=== PATIENT | female | born 1975 | race Caucasian/White ===

== ENCOUNTER 2017-01-01 21:30 | Emergency (ER) | payer BC, OTHER ==
[~2017-01-01] VITALS: Ht 160 cm; Wt 72.6 kg
[~2017-01-01 21:30] MED LIST: ACHD5005 PO; CLIN300C3 PO; CYCL10TA9 PO; FLUC200T45 PO; METH4TAB PO; MOME15CR TP; NAPR-243 PO; OXYC-199 PO; PENI500T PO; TORADOL 10 MG PO; TRAM50TA2 PO
--- OUTSIDE RECORDS SUMMARY | 2017-01-01 21:37 | XMS REPORT | Continuity of Care Document ---
Author Author [facility] Organization [facility] Address Unknown Phone Unavailable Allergies Active Description Code Type Severity Reaction Onset Reported/Identified Relationship to Patient Clinical Status Yes No Known Drug Allergies [id number] Drug Allergy Unknown N/ A 10/07/2013 Medications Problems Date Dx Coded Attending Type Code Diagnosis Diagnosed By 02/17/2010 Ot 805.3 02/17/2010 Ot 813.42 02/17/2010 Ot 845.00 02/17/2010 Ot 846.0 02/17/2010 Ot 847.0 02/17/2010 Ot 920 02/17/2010 Ot 959.01 02/17/2010 Ot E000.8 02/17/2010 Ot E812.0 10/13/2013 NILE TEJADA DO Ot 543.0 10/16/2013 AMOS FAVIOLA BURGOS Ot 692.9 11/04/2013 AMOS FAVIOLA Buckner Ot 521.00 11/04/2013 AMOS FAVIOLA BURGOS Ot 522.5 11/04/2013 AMOS FAVIOLA BURGOS Ot 525.9 07/23/2014 LUKE GRIFFITHS DO Ot 789.09 02/05/2015 LUKE GRIFFITHS DO Ot 789.09 02/05/2015 NILE TEJADA DO Ot 789.03 02/05/2015 NILE TEJADA DO Ot V72.63 02/05/2015 NILE TEJADA DO Ot V74.8 02/15/2015 LUKE GRIFFITHS DO Ot 789.09 02/15/2015 NILE TEJADA DO Ot 789.03 02/15/2015 NILE TEJADA DO Ot V72.63 02/15/2015 NILE TEJADA DO Ot V74.8 Procedures Results Encounters ACCT No. Visit Date/Time Discharge Status Pt. Type Provider Facility Loc./Unit Complaint [id number] 11/04/2013 17:22:00 2013 19:32:00 DIS Emergency AMOS FAVIOLA BURGOS [facility] ER [id number] 10/16/2013 03:38:00 2013 04:09:00 DIS Emergency FAVIOLA TRINIDAD DO [facility] ER [id number] 10/13/2013 10:55:00 2013 17:55:00 DIS Outpatient TERRELL NILE [facility] [id number] 10/07/2013 09:40:00 2013 23:59:59 CLS Outpatient TERRELL DORONAKTRINI [facility] PREOP [id number] 08/13/2013 12:05:00 2013 23:59:59 CLS Outpatient AYE LUKE Ayaan [facility] RAD [id number] 02/17/2010 19:04:00 Document Registration
[2017-01-01] MEDS ORDERED: OXYC-197 PO (21:52)
[2017-01-01] MEDS ORDERED: KETOROLAC 60 MG/2 ML VIAL IM STA (22:06)
[2017-01-01] MEDS ORDERED: MELO15TA14 PO (22:11)
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
[2017-01-01 22:41] VITALS: BP 120/74
--- NOTE | 2017-01-02 06:27 | Diagnostic Imaging Report ---
INDICATION: Injury. Pain. Recent fusion. COMPARISON: 04/27/2010 FINDINGS: 3 views of the left ankle are obtained. There is generalized osteopenia. There are new postoperative changes of subtalar fusion. No unusual lucency reaction is seen about the fusion hardware. There is still some lucency across the subtalar joint. No acute fracture or malalignment is seen. Ankle mortise appears preserved. There is soft tissue swelling medially and laterally. IMPRESSION: Generalized osteopenia, postoperative changes of interval subtalar fusion. No evidence of an acute fracture or complicating process. There is moderate soft tissue swelling. Dictated by: Dictated on workstation # [id number]
== END 2017-01-01 22:41 | disposition home or self-care (01) ==
LOC: EDUNIT# 21:30 → ER 21:33
DX: S93.402A Sprain of unspecified ligament of left ankle, initial encounter (principal); M17.12 Unilateral primary osteoarthritis, left knee; F17.210 Nicotine dependence, cigarettes, uncomplicated; Z90.710 Acquired absence of both cervix and uterus; Z98.1 Arthrodesis status; X50.0XXA Overexertion from strenuous movement or load, initial encounter
CPT/HCPCS: 73610; 96372; 99284

== ENCOUNTER 2017-11-07 12:32 | Emergency (ER) | payer SELFPAY ==
[~2017-11-07] VITALS: Ht 160 cm; Wt 72.6 kg
[~2017-11-07 12:32] MED LIST changes: +MELO15TA14 PO; +OXYC1TAB87 PO
[2017-11-07] MEDS ORDERED: NS IV 1000 ML 1,000 ML IV ONE (13:29)
[2017-11-07] MEDS ORDERED: KETOROLAC 30 MG/ML VIAL IVP STA (13:29)
--- NOTE | 2017-11-07 13:45 | ED Abdominal Pain ---
General Chief Complaint: Abdominal/GI Problems Stated Complaint: ABD PAIN Nursing Triage Note: PT CO OF ABD R LOWER ABD PAIN. X1 WEEK, PT DENIES N/V/D, PT HAS WEAKNESS, L EAR ACHE AND SORETHROAT Sepsis Screen: No Definite Risk Source of Information: Patient Exam Limitations: No Limitations History of Present Illness Date Seen by Provider: Nov 07, 2017 Time Seen by Provider: 13:10 Initial Comments Here with report of increasing right lower quadrant pain over the last week. Has had a little bit of nausea but no vomiting or diarrhea. Denies dysuria. Dates pain is worse with urination. Also complains of upper respiratory symptoms including left ear fullness and ache as well as sore throat. That has been going on for a couple days and seems to be worsening as well. Hasn't really taken anything for the pain. Also has concerns about depression. She has been following with her doctor in [place] and was previously on antidepressants but hasn't been on them in a while. She has increased stress related to recent divorce and move. Does have history of right lower quadrant abdominal pain and adhesions after appendectomy. Has had complete hysterectomy and oophorectomy. A normal bowel movement yesterday. Denies blood in her stool or urine Timing/Duration: 1 Week Severity/Quality: Moderate, Aching Location: RLQ Radiation: Back Activities at Onset: None Modifying Factors: Worsens With Movement, Worsens With Urinating Associated Symptoms: No Back Pain, No Chest Pain, No Fever/Chills; Fatigue, Nausea/Vomiting; No Swelling/Mass in Abdomen, No Weakness Allergies and Home Medications Allergies Coded Allergies: No Known Drug Allergies (Unverified , 10/07/13) Home Medications No Active Prescriptions or Reported Meds Patient Home Medication List Home Medication List Reviewed: Yes Review of Systems Review of Systems Constitutional: see HPI; No fever; malaise EENTM: Nose Congestion, Throat Pain Respiratory: Denies Cough, Denies Shortness of Air Cardiovascular: Denies Chest Pain, Denies Edema Gastrointestinal: Abdominal Pain; Denies Constipated; Nausea; Denies Vomiting Genitourinary: See HPI, Pain Musculoskeletal: back pain; No muscle pain Skin: no symptoms reported Psychiatric/Neurological: Anxiety, Depressed Endocrine: No Symptoms Reported All Other Systems Reviewed Negative Unless Noted: Yes Past Hmhsudj-Ruhpyh-Nxukyc Hx Past Med/Social Hx: Reviewed Nursing Past Med/Soc Hx Patient Social History Alcohol Use: Denies Use Recreational Drug Use: No Type Used: Cigarettes 2nd Hand Smoke Exposure: Yes Recent Foreign Travel: No Contact w/Someone Who Travel: No Recent Infectious Disease Expo: No Recent Hopitalizations: No Physical Abuse: No Sexual Abuse: No Immunizations Up To Date Tetanus Booster (TDap): Less than 5yrs PED Vaccines UTD: Yes Seasonal Allergies Seasonal Allergies: Yes Past Medical History Surgeries: Yes (BREAST LUMPECTOMY, BACK SX RODS PLACED, LEFT ANKLE SX, DXLS) Breast, Hysterectomy, Orthopedic Respiratory: No Cardiac: No 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 oz. 72.006044fh; 29.23 BMI Method:Stated General Appearance: WD/WN, no apparent distress HEENT: PERRL/EOMI, pharyngeal erythema; No tonsillar exudate; other (moderate bilateral nasal congestion with erythema and clear rhinorrhea. Question mild left TM bulging but clear fluid. Otherwise normal TM exams bilateral) Neck: full range of motion, supple Respiratory: lungs clear, normal breath sounds Cardiovascular: regular rate, rhythm, no murmur Gastrointestinal: soft; No guarding, No rebound; tenderness Extremities: non-tender, normal inspection Back: normal inspection, no CVA tenderness, no vertebral tenderness Neurologic/Psychiatric: alert, oriented x 3 Skin: normal color, warm/dry Progress/Results/Core Measures Results/Orders Lab Results Laboratory Tests Test 11/07/17 13:50 11/07/17 13:53 Range/Units White Blood Count 7.0 4.3-11.0 10^3/uL Red Blood Count 4.41 4.35-5.85 10^6/uL Hemoglobin 13.5 11.5-16.0 G/DL Hematocrit 40 35-52 % Mean Corpuscular Volume 90 80-99 FL Mean Corpuscular Hemoglobin 31 25-34 PG Mean Corpuscular Hemoglobin Concent 34 32-36 G/DL Red Cell Distribution Width 12.7 10.0-14.5 % Platelet Count 230 130-400 10^3/uL Mean Platelet Volume 11.0 H 7.4-10.4 FL Neutrophils (%) (Auto) 53 42-75 % Lymphocytes (%) (Auto) 35 12-44 % Monocytes (%) (Auto) 9 0-12 % Eosinophils (%) (Auto) 3 0-10 % Basophils (%) (Auto) 1 0-10 % Neutrophils # (Auto) 3.7 1.8-7.8 X 10^3 Lymphocytes # (Auto) 2.5 1.0-4.0 X 10^3 Monocytes # (Auto) 0.6 0.0-1.0 X 10^3 Eosinophils # (Auto) 0.2 0.0-0.3 10^3/uL Basophils # (Auto) 0.0 0.0-0.1 10^3/uL Sodium Level 139 135-145 MMOL/L Potassium Level 3.8 3.6-5.0 MMOL/L Chloride Level 108 H 98-107 MMOL/L Carbon Dioxide Level 25 21-32 MMOL/L Anion Gap 6 5-14 MMOL/L Blood Urea Nitrogen 8 7-18 MG/DL Creatinine 0.85 0.60-1.30 MG/DL Estimat Glomerular Filtration Rate > 60 BUN/Creatinine Ratio 9 Glucose Level 85 70-105 MG/DL Calcium Level 9.7 8.5-10.1 MG/DL Corrected Calcium 9.4 8.5-10.1 MG/DL Total Bilirubin 0.4 0.1-1.0 MG/DL Aspartate Amino Transf (AST/SGOT) 13 5-34 U/L Alanine Aminotransferase (ALT/SGPT) 14 0-55 U/L Alkaline Phosphatase 116 40-136 U/L Total Protein 7.3 6.4-8.2 GM/DL Albumin 4.4 3.2-4.5 GM/DL Urine Color YELLOW Urine Clarity CLEAR Urine pH 6 5-9 Urine Specific [place] 1.005 L 1.016-1.022 Urine Protein NEGATIVE NEGATIVE Urine Glucose (UA) NEGATIVE NEGATIVE Urine Ketones NEGATIVE NEGATIVE Urine Nitrite NEGATIVE NEGATIVE Urine Bilirubin NEGATIVE NEGATIVE Urine Urobilinogen NORMAL NORMAL MG/DL Urine Leukocyte Esterase NEGATIVE NEGATIVE Urine RBC (Auto) NEGATIVE NEGATIVE Urine RBC NONE /HPF Urine WBC NONE /HPF Urine Squamous Epithelial Cells RARE /HPF Urine Crystals NONE /LPF Urine Bacteria NEGATIVE /HPF Urine Casts NONE /LPF Urine Mucus NEGATIVE /LPF Urine Culture Indicated NO My Orders Orders - JANNA OJEDA MD Cbc With Automated Diff (11/07/17 13:29) Comprehensive Metabolic Panel (11/07/17 13:29) Ua Culture If Indicated (11/07/17 13:29) Saline Lock/Iv-Start (11/07/17 13:29) Ns Iv 1000 Ml (Sodium Chloride 0.9%) (11/07/17 13:29) Ketorolac Injection (Toradol Injection) (11/07/17 13:29) Ct Abdomen/Pelvis W (11/07/17 14:28) Fentanyl Injection (Sublimaze Injection (11/07/17 15:30) Medications Given in ED Current Medications Medications Dose Ordered Sig/Sreekanth Route Start Time Stop Time Status Last Admin Dose Admin Sodium Chloride 1,000 ml @ 0 mls/hr Q0M ONCE IV 11/07/17 13:29 11/07/17 13:31 DC 11/07/17 14:13 1,000 MLS/HR Vital Signs/I&O 11/07/17 13:00 Temp 99.1 Pulse 74 Resp 16 B/P (MAP) 117/68 (84) Pulse Ox 98 Blood Pressure Mean: 84 Progress Progress Note : Progress Note Seen and evaluated. IV, labs and UA ordered. Normal saline 1 L bolus. Toradol 30 mg IV. Monitor patient. 1445: CT abdomen pelvis with contrast ordered. Patient doing a little better after pain control but still has pain. Monitor patient. 1600: CT complete. Patient did receive fentanyl 30 g IV. This did help. No acute findings on CT scan. I did discuss the case with Dr. Pierre. He did be happy to see her in the office. He did review the CT scan. You would try to avoid any further surgeries but will see her and follow her as needed. I did talk at length with the patient about follow-up for her depression. Gave her information [facility]. She is also looking for a local physician. We talked about different options and we will give name of Dr. Mcgrath to her. Discharged home with return precautions. Patient verbalize understanding instructions and agreement with plan. Diagnostic Imaging Diagonstic Imaging: CT Plain Films/CT/US/NM/MRI: abdomen, pelvis Comments V[facility] [place], [place] NAME: BERTO CARRINGTON [facility] REC#: [id number] PT STATUS: REG ER : 1975 PHYSICIAN: JANNA OJEDA MD ADMIT DATE: 11/07/17/ER Draft Date of Exam:11/07/17 CT ABDOMEN/PELVIS W PROCEDURE: CT abdomen and pelvis with contrast. TECHNIQUE: Multiple contiguous axial images were obtained through the abdomen and pelvis after administration of intravenous contrast. INDICATION: Right lower quadrant pain of one week's duration, recently worsening in severity. Has had previous hysterectomy and appendectomy. COMPARISON: The exam compared 11/13/2013. FINDINGS: There is no hydronephrosis. No opaque kidney stone. The liver, spleen, adrenals, and pancreas are unremarkable. The gallbladder is unremarkable. No bile duct dilatation. There is no pericolonic or perienteric edema. No small or large bowel wall thickening. There is no focal inflammatory process. Previous surgical changes of appendectomy present without evidence for stump appendicitis. There is no mesenteric or retroperitoneal lymphadenopathy. There are postsurgical changes to the thoracolumbar spine with no acute osseous pathology. The lung bases are clear. Colonic fecal load is not pathologic. There is no evidence for ileus. No focal inflammation. No ascites or fluid collection. IMPRESSION: Postsurgical changes but no obstructive phenomena, inflammatory process, or acute abnormalities identified. No findings to explain the presenting complaints. Dictated on workstation # [id number] Dict: 11/07/17 1525 Trans: 11/07/17 1538 [id number] Interpreted by: KIKE DEGROOT Electronically signed by: Departure Impression Primary Impression: Right lower quadrant abdominal pain Additional Impressions: Upper respiratory infection Qualified Codes: J06.9 - Acute upper respiratory infection, unspecified Depression Qualified Codes: F32.9 - Major depressive disorder, single episode, unspecified Disposition: 01 HOME, SELF-CARE Condition: Improved Departure-Patient Inst. Decision time for Depature: 16:05 Referrals: KISHOR PIERRE DO NO,LOCAL PHYSICIAN (PCP) Primary Care Physician BRIANNA MCGRATH MD Patient Instructions: Acute Abdomen (Belly Pain), Adult (DC), Depression, Adult (DC), Viral Upper Respiratory Infection, Adult (DC) Add. Discharge Instructions: All discharge instructions reviewed with patient and/or family. Voiced understanding. Should take medications as directed. You may take ibuprofen 600 mg every 8 hours as needed for pain. You may take Tylenol/acetaminophen 1000 mg every 8 hours as needed for pain. For your ear pain and sore throat, you may try Afrin nasal spray or the generic, 12 hour relief, 2 sprays to each nostril twice daily for 3 days only and then stop. Do not use more than 3 days. You should follow-up with the doctor listed or other choosing for your depression. You should seek further counseling with [facility] for similar. Call for appointment. You may follow-up with Dr. Pierre for your abdominal pain. Call his office for appointment. Drink plenty of fluids. Return for worse pain, fever, vomiting, weakness or other concerns as needed. Scripts No Active Prescriptions or Reported Meds JANNA OJEDA MD Nov 07, 2017 13:45
[2017-11-07 14:02] LABS: BASOPHILS % (AUTO) 1 % (0-10); EOSINOPHILS # (AUTO) 0.2 10^3/uL (0.0-0.3); EOSINOPHILS % (AUTO) 3 % (0-10); HEMATOCRIT 40 % (35-52); HEMOGLOBIN 13.5 G/DL (11.5-16.0); LYMPHOCYTES # (AUTO) 2.5 X 10^3 (1.0-4.0); LYMPHOCYTES % (AUTO) 35 % (12-44); MEAN CORPUSCULAR HEMOGLOBIN 31 PG (25-34); MEAN CORPUSCULAR HGB CONC 34 G/DL (32-36); MEAN CORPUSCULAR VOLUME 90 FL (80-99); MONOCYTES # (AUTO) 0.6 X 10^3 (0.0-1.0); MONOCYTES % (AUTO) 9 % (0-12); NEUTROPHILS # (AUTO) 3.7 X 10^3 (1.8-7.8); NEUTROPHILS % (AUTO) 53 % (42-75); PLATELET COUNT 230 10^3/uL (130-400); RED BLOOD COUNT 4.41 10^6/uL (4.35-5.85); RED CELL DISTRIBUTION WIDTH 12.7 % (10.0-14.5)
[2017-11-07 14:02] LABS: BILIRUBIN,URINE NEGATIVE (NEGATIVE); CLARITY,URINE CLEAR; COLOR,URINE YELLOW; GLUCOSE, URINE (UA) NEGATIVE (NEGATIVE); KETONES,URINE NEGATIVE (NEGATIVE); LEUKOCYTE ESTERASE ,URINE NEGATIVE (NEGATIVE); NITRITE,URINE NEGATIVE (NEGATIVE); PH,URINE 6 (5-9); PROTEIN,URINE NEGATIVE (NEGATIVE); UROBILINOGEN,URINE NORMAL (NORMAL)
[2017-11-07 14:12] LABS: BACTERIA,URINE NEGATIVE /HPF; SQUAMOUS EPITHELIAL CELL,UR RARE /HPF
[2017-11-07 14:22] LABS: ALANINE AMINOTRANSFERASE 14 U/L (0-55); ALBUMIN 4.4 GM/DL (3.2-4.5); ALKALINE PHOSPHATASE 116 U/L (40-136); BILIRUBIN,TOTAL 0.4 MG/DL (0.1-1.0); BUN/CREATININE RATIO 9; CALCIUM 9.7 MG/DL (8.5-10.1); CARBON DIOXIDE 25 MMOL/L (21-32); CHLORIDE 108 MMOL/L (98-107); CREATININE SERUM 0.85 MG/DL (0.60-1.30); GFR ESTIMATED > 60; GLUCOSE 85 MG/DL (70-105); POTASSIUM 3.8 MMOL/L (3.6-5.0); SODIUM 139 MMOL/L (135-145); TOTAL PROTEIN 7.3 GM/DL (6.4-8.2)
[2017-11-07] MEDS ORDERED: fentaNYL INJECTION 100 MCG/2 ML AMP IVP STA (15:30)
--- NOTE | 2017-11-07 15:38 | Diagnostic Imaging Report ---
PROCEDURE: CT abdomen and pelvis with contrast. TECHNIQUE: Multiple contiguous axial images were obtained through the abdomen and pelvis after administration of intravenous contrast. INDICATION: Right lower quadrant pain of one week's duration, recently worsening in severity. Has had previous hysterectomy and appendectomy. COMPARISON: The exam compared 11/13/2013. FINDINGS: There is no hydronephrosis. No opaque kidney stone. The liver, spleen, adrenals, and pancreas are unremarkable. The gallbladder is unremarkable. No bile duct dilatation. There is no pericolonic or perienteric edema. No small or large bowel wall thickening. There is no focal inflammatory process. Previous surgical changes of appendectomy present without evidence for stump appendicitis. There is no mesenteric or retroperitoneal lymphadenopathy. There are postsurgical changes to the thoracolumbar spine with no acute osseous pathology. The lung bases are clear. Colonic fecal load is not pathologic. There is no evidence for ileus. No focal inflammation. No ascites or fluid collection. IMPRESSION: Postsurgical changes but no obstructive phenomena, inflammatory process, or acute abnormalities identified. No findings to explain the presenting complaints. Dictated by: Dictated on workstation # [id number]
[2017-11-07 16:16] VITALS: BP 117/68
== END 2017-11-07 18:13 | disposition home or self-care (01) ==
LOC: EDUNIT# 12:32 → ER 12:34
DX: R10.31 Right lower quadrant pain (principal); J06.9 Acute upper respiratory infection, unspecified; F32.9 Major depressive disorder, single episode, unspecified; Z90.89 Acquired absence of other organs; Z90.710 Acquired absence of both cervix and uterus; Z77.22 Contact with and (suspected) exposure to environmental tobacco smoke (acute) (chronic)
CPT/HCPCS: 36415; 74177; 80053; 81000; 85025; 96361; 96374; 96375

== ENCOUNTER → 2017-12-17 | Emergency (ER) | payer SELFPAY ==
[~2017-12-17] VITALS: Ht 160 cm; Wt 72.6 kg
[~2017-12-17] MED LIST changes: +NS IV 1000 ML 1,000 ML IV ONE; +PRD20T PO; +RT-ALBUTEROL/IPRATROPIUM 3 ML (DUONEB) VIAL INH ONE; +RX-ALBUTEROL INHALER (PROAIR) 8 GM IH STA; +predniSONE 20 MG TAB PO ONE
[2017-12-17 00:55] LABS: BASOPHILS % (AUTO) 0 % (0-10); EOSINOPHILS # (AUTO) 0.3 10^3/uL (0.0-0.3); EOSINOPHILS % (AUTO) 3 % (0-10); HEMATOCRIT 41 % (35-52); HEMOGLOBIN 14.1 G/DL (11.5-16.0); LYMPHOCYTES # (AUTO) 3.8 X 10^3 (1.0-4.0); LYMPHOCYTES % (AUTO) 40 % (12-44); MEAN CORPUSCULAR HEMOGLOBIN 31 PG (25-34); MEAN CORPUSCULAR HGB CONC 34 G/DL (32-36); MEAN CORPUSCULAR VOLUME 91 FL (80-99); MEAN PLATELET VOLUME 10.9 FL (7.4-10.4); MONOCYTES # (AUTO) 0.6 X 10^3 (0.0-1.0); MONOCYTES % (AUTO) 6 % (0-12); NEUTROPHILS # (AUTO) 4.7 X 10^3 (1.8-7.8); NEUTROPHILS % (AUTO) 50 % (42-75); PLATELET COUNT 271 10^3/uL (130-400); RED BLOOD COUNT 4.53 10^6/uL (4.35-5.85); WHITE BLOOD COUNT 9.5 10^3/uL (4.3-11.0)
--- NOTE | 2017-12-17 01:00 | ED Respiratory ---
General Stated Complaint: SOB Source: patient Exam Limitations: no limitations History of Present Illness Date Seen by Provider: Dec 17, 2017 Time Seen by Provider: 00:32 Initial Comments Here with report of acute onset shortness of breath at about 1130 p.m. She had just returned from a trip to [place] and spent [address] with very little break. Never had anything like this before. Does report some central chest pressure with shortness of breath. She reports that she was able to cough and get a little relief but still feels the shortness of breath now. Timing/Duration: this evening, constant Severity: moderate Prior Episodes/Possible Cause: no prior episodes Modifying Factors: Improves With Coughing, Improves With Rest Associated Symptoms: cough; No fever/chills; nasal drainage, shortness of breath; No sore throat, No wheezing Allergies and Home Medications Allergies Coded Allergies: No Known Drug Allergies (Unverified , 10/07/13) Home Medications Prednisone 20 Mg Tab, 40 MG PO DAILY Prescribed by: JANNA OJEDA on 12/17/17 0223 Patient Home Medication List Home Medication List Reviewed: Yes Review of Systems Review of Systems Constitutional: see HPI; No chills, No fever EENTM: see HPI Respiratory: see HPI, cough, dyspnea on exertion Cardiovascular: see HPI; No edema, No palpitations Gastrointestinal: No abdominal pain, No nausea, No vomiting Genitourinary: no symptoms reported Musculoskeletal: no symptoms reported Skin: no symptoms reported Psychiatric/Neurological: No Symptoms Reported All Other Systems Reviewed Negative Unless Noted: Yes Past Ibsamhn-Iqbxgu-Tdylfe Hx Past Med/Social Hx: Reviewed Nursing Past Med/Soc Hx Patient Social History Smoking Status: Current Everyday Smoker Type Used: Cigarettes 2nd Hand Smoke Exposure: Yes Recent Foreign Travel: No Contact w/Someone Who Travel: No Recent Hopitalizations: No Immunizations Up To Date Tetanus Booster (TDap): Less than 5yrs PED Vaccines UTD: Yes Seasonal Allergies Seasonal Allergies: Yes Past Medical History Surgeries: Yes (BREAST LUMPECTOMY, BACK SX RODS PLACED, LEFT ANKLE SX, DXLS) Breast, Hysterectomy, Orthopedic Respiratory: No Cardiac: No Neurological: No [employer] History: Hysterectomy Genitourinary: No Gastrointestinal: No Musculoskeletal: Yes (CHRONIC LEFT ANKLE PAIN--S/P SURGERY) Back Injury Endocrine: No HEENT: No Cancer: No Psychosocial: No Integumentary: No Blood Disorders: No Family Medical History Reviewed Nursing Family Hx Physical Exam Vital Signs - First Documented 12/17/17 12/17/17 00:30 01:42 Temp 98.0 Pulse 79 Resp 16 B/P (MAP) 134/86 (102) Pulse Ox 98 O2 Delivery Room Air Capillary Refill : Height: 5'3.00" Weight: 160lbs. oz. [id number]; 29.23 BMI Method:Stated General Appearance: WD/WN, no apparent distress HEENT: PERRL/EOMI, pharynx normal Neck: full range of motion, supple Respiratory: lungs clear, normal breath sounds Cardiovascular: regular rate, rhythm, no murmur Gastrointestinal: non tender, soft Extremities: non-tender, normal inspection, no pedal edema, no calf tenderness Neurologic/Psychiatric: alert, oriented x 3 Skin: normal color, warm/dry Progress/Results/Core Measures Suspected Sepsis SIRS Temperature: Pulse: Respiratory Rate: Laboratory Tests 12/17/17 00:40: White Blood Count 9.5 Blood Pressure / Mean: Laboratory Tests 12/17/17 00:40: Creatinine 1.00, Platelet Count 271, Total Bilirubin 0.3 Results/Orders Lab Results Laboratory Tests Test 12/17/17 00:40 Range/Units White Blood Count 9.5 4.3-11.0 10^3/uL Red Blood Count 4.53 4.35-5.85 10^6/uL Hemoglobin 14.1 11.5-16.0 G/DL Hematocrit 41 35-52 % Mean Corpuscular Volume 91 80-99 FL Mean Corpuscular Hemoglobin 31 25-34 PG Mean Corpuscular Hemoglobin Concent 34 32-36 G/DL Red Cell Distribution Width 13.0 10.0-14.5 % Platelet Count 271 130-400 10^3/uL Mean Platelet Volume 10.9 H 7.4-10.4 FL Neutrophils (%) (Auto) 50 42-75 % Lymphocytes (%) (Auto) 40 12-44 % Monocytes (%) (Auto) 6 0-12 % Eosinophils (%) (Auto) 3 0-10 % Basophils (%) (Auto) 0 0-10 % Neutrophils # (Auto) 4.7 1.8-7.8 X 10^3 Lymphocytes # (Auto) 3.8 1.0-4.0 X 10^3 Monocytes # (Auto) 0.6 0.0-1.0 X 10^3 Eosinophils # (Auto) 0.3 0.0-0.3 10^3/uL Basophils # (Auto) 0.0 0.0-0.1 10^3/uL D-Dimer 0.28 0.00-0.49 UG/ML Sodium Level 141 135-145 MMOL/L Potassium Level 3.7 3.6-5.0 MMOL/L Chloride Level 107 98-107 MMOL/L Carbon Dioxide Level 22 21-32 MMOL/L Anion Gap 12 5-14 MMOL/L Blood Urea Nitrogen 10 7-18 MG/DL Creatinine 1.00 0.60-1.30 MG/DL Estimat Glomerular Filtration Rate 60 BUN/Creatinine Ratio 10 Glucose Level 104 70-105 MG/DL Calcium Level 10.1 8.5-10.1 MG/DL Corrected Calcium 8.5-10.1 MG/DL Total Bilirubin 0.3 0.1-1.0 MG/DL Aspartate Amino Transf (AST/SGOT) 19 5-34 U/L Alanine Aminotransferase (ALT/SGPT) 27 0-55 U/L Alkaline Phosphatase 118 40-136 U/L Troponin I < 0.30 <0.30 NG/ML Total Protein 7.8 6.4-8.2 GM/DL Albumin 4.7 H 3.2-4.5 GM/DL Micro Results Microbiology 12/17/17 Influenza Types A,B Antigen (ORLIN) - Final, Complete My Orders Orders - JANNA OJEDA MD Ekg Tracing (12/17/17 00:45) Cbc With Automated Diff (12/17/17 00:45) Comprehensive Metabolic Panel (12/17/17 00:45) Troponin I (12/17/17 00:45) Influenza A And B Antigens (12/17/17 00:45) Saline Lock/Iv-Start (12/17/17 00:45) Ns Iv 1000 Ml (Sodium Chloride 0.9%) (12/17/17 00:45) Fibrin Degradation Products (12/17/17 01:03) Albuterol/Ipra Inhalation Soln (Duoneb I (12/17/17 01:30) Svn Small Volume Nebulizer (12/17/17 01:27) Rx-Albuterol Inhaler (Rx-Proair) (12/17/17 01:50) Prednisone Tablet (Deltasone Tablet) (12/17/17 02:00) Medications Given in ED Current Medications Medications Dose Ordered Sig/Sreekanth Route Start Time Stop Time Status Last Admin Dose Admin Albuterol/ Ipratropium 3 ml ONCE ONCE INH 12/17/17 01:30 12/17/17 01:31 DC 12/17/17 01:41 3 ML Prednisone 40 mg ONCE ONCE PO 12/17/17 02:00 12/17/17 02:01 DC 12/17/17 02:06 40 MG Sodium Chloride 1,000 ml @ 0 mls/hr Q0M ONCE IV 12/17/17 00:45 12/17/17 00:47 DC 12/17/17 01:00 1,000 MLS/HR Vital Signs/I&O 12/17/17 12/17/17 00:30 01:42 Temp 98.0 Pulse 79 Resp 16 B/P (MAP) 134/86 (102) Pulse Ox 98 96 O2 Delivery Room Air Capillary Refill : Progress Note : Progress Note Seen and evaluated. IV, labs, EKG ordered. Influenza screen done due to nasal congestion. Patient does have risk factor of long car ride although O2 sat 98 percent on room air with heart rate of 77-80. There is no unilateral calf swelling. PERC score [address] versus d-dimer and we will start with d-dimer as her PERC score is negative. 0220: D-dimer was negative. We did give DuoNeb treatment and prednisone 40 mg by mouth. Albuterol MDI given for home. Overall feeling a little better. This seems to be more related to upper respiratory and reactive lungs versus other problems. We will treat it as this for now with the understanding to return for worsening. Discharged home with return precautions. Patient verbalize understanding instructions and agreement with plan. ECG Initial ECG Impression Date: Dec 17, 2017 Initial ECG Impression Time: 00:49 Initial ECG Rate: 77 Initial ECG Rhythm: Normal Sinus Initial ECG Comparisson: No Previous ECG Available Comment Sinus rhythm with probable left atrial abnormality. No evidence of ST elevation [place]. Normal but rightward axis. Interpreted by me. Departure Impression Primary Impression: Upper respiratory infection Qualified Codes: J06.9 - Acute upper respiratory infection, unspecified Additional Impression: RAD (reactive airway disease) Qualified Codes: J45.21 - Mild intermittent asthma with (acute) exacerbation Disposition: HOME, SELF-CARE Condition: Improved Departure-Patient Inst. Decision time for Depature: 02:21 Referrals: NO,LOCAL PHYSICIAN (PCP/Family) Primary Care Physician Patient Instructions: Acute Bronchitis, Adult (DC) Add. Discharge Instructions: Take medications as directed. Follow-up with your Dr. in a few days for recheck as needed. Return for worse pain, fever, breathing problems or other concerns as needed. You may take Benadryl/diphenhydramine 25 mg every 6 hours as needed for nasal congestion or runny nose. Scripts Prednisone (Prednisone) 20 Mg Tab 40 MG PO DAILY, #6 TAB 0 Refills Prov: JANNA OJEDA MD 12/17/17 JANNA OJEDA MD Dec 17, 2017 00:59
[2017-12-17 01:13] LABS: ALANINE AMINOTRANSFERASE 27 U/L (0-55); ALBUMIN 4.7 GM/DL (3.2-4.5); ALKALINE PHOSPHATASE 118 U/L (40-136); BILIRUBIN,TOTAL 0.3 MG/DL (0.1-1.0); BUN/CREATININE RATIO 10; CALCIUM 10.1 MG/DL (8.5-10.1); CARBON DIOXIDE 22 MMOL/L (21-32); CHLORIDE 107 MMOL/L (98-107); GFR ESTIMATED 60; GLUCOSE 104 MG/DL (70-105); POTASSIUM 3.7 MMOL/L (3.6-5.0); SODIUM 141 MMOL/L (135-145); TOTAL PROTEIN 7.8 GM/DL (6.4-8.2)
[2017-12-17 02:48] VITALS: BP 111/80
== END | disposition home or self-care (01) ==
LOC: EDUNIT# 00:27 → ER 00:29
DX: J06.9 Acute upper respiratory infection, unspecified (principal); J45.909 Unspecified asthma, uncomplicated; F17.210 Nicotine dependence, cigarettes, uncomplicated; Z79.52 Long term (current) use of systemic steroids; Z90.710 Acquired absence of both cervix and uterus
CPT/HCPCS: 36415; 80053; 84484; 85025; 85379; 87804; 93005; 94640; 94664; 96360